=== PATIENT | male | born 1970 | race American Indian/Alaskan Native ===

== ENCOUNTER 2017-01-07 12:43 | Emergency (ER) | payer OTHER ==
[2017-01-07 13:25] VITALS: BP 128/87
[2017-01-07 14:12] LABS: Anion Gap 17 mmol/L; Blood Urea Nitrogen 11 mg/dL (9-20); Calcium 9.5 mg/dL (8.4-10.2); Carbon Dioxide 28 mmol/L (22-30); Chloride 99.2 mmol/L (98-107); Glucose 77 mg/dL (75-100); Potassium 4.3 mmol/L (3.6-5.0); Sodium 140 mmol/L (137-145)
[2017-01-07 14:14] LABS: Basophils % (Auto) 0.7 % (0.0-1.8); Eosinophils % (Auto) 4.3 % (0.0-4.3); Hematocrit 46.9 % (35.5-45.6); Hemoglobin 15.5 gm/dl (11.8-15.2); Mean Corpuscular HGB Conc 33 % (32-34); Mean Corpuscular Hemoglobin 30 pg (28-32); Mean Corpuscular Volume 90 fl (84-94); Platelet Count 265 K/mm3 (140-440); Red Cell Distribution Width 14.1 % (13.2-15.2); White Blood Count 4.1 K/mm3 (4.5-11.0)
--- NOTE | 2017-01-08 09:28 | ED Elopement Review ---
ED Pt Elopement review - Results review Lab results: Laboratory Tests 01/07/17 01/07/17 01/07/17 13:35 13:35 16:42 WBC 4.1 L RBC 5.20 H Hgb 15.5 H Hct 46.9 H MCV 90 MCH 30 MCHC 33 RDW 14.1 Plt Count 265 Lymph % (Auto) 46.1 H [place] % (Auto) 10.8 H Eos % (Auto) 4.3 Baso % (Auto) 0.7 Lymph # 1.9 [place] # 0.4 Eos # 0.2 Baso # 0.0 Seg Neutrophils % 38.1 L Seg Neutrophils # 1.6 L Sodium 140 Potassium 4.3 Chloride 99.2 Carbon Dioxide 28 Anion Gap 17 BUN 11 Creatinine 1.1 Estimated GFR > 60 BUN/Creatinine Ratio 10.00 Glucose 77 Calcium 9.5 Troponin T < 0.010 < 0.010 - Call Back decision Pt Call Back Decision: No action required
== END 2017-01-07 23:00 | disposition left against medical advice (07) ==
LOC: ED 12:43
DX: R07.89 Other chest pain (principal); R51 Headache; Z53.21 Procedure and treatment not carried out due to patient leaving prior to being seen by health care provider
CPT/HCPCS: 36415; 80048; 84484; 85025; 93005; 93010

== ENCOUNTER 2017-12-22 10:11 | Outpatient (CLI) | payer OTHER ==
--- NOTE | 2017-12-22 11:07 | XRay Report ---
Bilateral hips: Bilateral hip pain. Standing images of the hips are obtained. There is [id number] narrowing of the superior hip joints bilaterally with irregular contours and subchondral erosions of the acetabulum and femoral heads. Lateral spurs are identified at the superior and inferior joints bilaterally. Both hips however are well-positioned within the acetabular contours. Comparison with the prior exam in February 2008 demonstrates severe progression of the described changes. Impression: Severe bilateral degenerative hip joint changes.
== END 2017-12-22 10:12 | disposition home or self-care (01) ==
LOC: SPVIMAG 10:11
PROVIDERS: ATTEND Orthopaedic Surgery Sports Medicine
DX: M16.0 Bilateral primary osteoarthritis of hip (principal)
CPT/HCPCS: 73521